=== PATIENT | male | born 1965 | race Caucasian/White ===

== ENCOUNTER 2021-11-20 18:41 | Emergency (ER) | payer OTHER ==
[2021-11-20 19:19] VITALS: BP 114/61; PULSE 72; TEMP 101.7; BMI 31.9
[2021-11-20] MEDS ORDERED: ACETAMINOPHEN 325 MG TABLET (FP) PO ONE (19:24)
== END 2021-11-20 20:17 | disposition home or self-care (01) ==
LOC: JER 18:41
DX: R50.9 Fever, unspecified (principal); R05.1 Acute cough
CPT/HCPCS: 71046-TC-FY; 99283-25

== ENCOUNTER 2022-02-18 17:02 | Emergency (ER) | payer OTHER ==
[2022-02-18 17:39] VITALS: BP 99/65; PULSE 85; RESP 17; TEMP 99.3; BMI 30.7
[2022-02-18 17:53] LABS: EPI CELLS 2 /uL (0-25.1); HYALINE CASTS 1 /uL (0-3.1); URINE APPEARANCE TURBID; URINE BACTERIA 692 /uL (0-1359); URINE BILIRUBIN NEGATIVE (NEGATIVE); URINE COLOR YELLOW; URINE GLUCOSE (UA) NEGATIVE (NEGATIVE); URINE KETONE NEGATIVE (NEGATIVE); URINE LEUK ESTERASE 3+ (NEGATIVE); URINE NITRITE NEGATIVE (NEGATIVE); URINE PROTEIN 1+ (NEGATIVE); URINE RBC 113 /uL (0-23.9); URINE UROBILINOGEN 0.2 mg/dL (0.2-1.0); URINE WBC 3250 /uL (0-25.8)
[2022-02-18] MEDS ORDERED: SODIUM CHLORIDE 1,000 ML IV ONE (18:12)
[2022-02-18 18:39] LABS: BASO % 0.3 % (0-2.0); HEMATOCRIT 42.3 % (35.4-49); HEMOGLOBIN 14.2 GM/dL (11.7-16.9); LYMPH % 7.3 % (8-40); MCH 26.7 pg (25.7-33.7); MCHC 33.6 g/dl (32.0-35.9); MEAN CELL VOLUME 79.4 fl (80-96); MEAN PLT VOLUME 7.9 fl (7.5-11.1); MONO % 6.9 % (3.8-10.2); NEUT % 85.5 % (42.8-82.8); PLATELET COUNT 227 10^3/uL (134-434); RBC 5.33 M/mm3 (4.00-5.60); RDW 14.2 % (11.9-15.9); WHITE BLOOD COUNT 12.9 K/mm3 (4.0-10.0)
[2022-02-18 18:45] LABS: CALCIUM 8.8 mg/dL (8.5-10.1)
[2022-02-18 18:46] LABS: ALBUMIN 3.8 g/dl (3.4-5.0); BLOOD UREA NITROGEN 13.2 mg/dL (7-18)
[2022-02-18 18:49] LABS: CREATININE 1.1 mg/dL (0.55-1.3)
[2022-02-18 18:50] LABS: TOT PROT 7.2 g/dl (6.4-8.2)
[2022-02-18 18:51] LABS: BILIRUBIN,TOTAL 0.9 mg/dL (0.2-1)
[2022-02-18] MEDS ORDERED: CEPHALEXIN MONOHYDRATE 500 MG CAPSULE (UD) PO ONE (18:51)
[2022-02-18] MEDS ORDERED: CEPHALEXIN MONOHYDRATE 500 MG CAPSULE (UD) ONE (19:05)
== END 2022-02-18 19:15 | disposition home or self-care (01) ==
LOC: JER 17:02
DX: N39.0 Urinary tract infection, site not specified (principal)
CPT/HCPCS: 36415; 80053; 81003; 85025; 87086; 87186; 99283-25